=== PATIENT | male | born 1950 | race Caucasian/White ===

== ENCOUNTER 2025-07-09 13:29 | Outpatient (AMB) | payer MEDICARE, SELFPAY ==
--- OUTSIDE RECORDS SUMMARY | 2025-07-09 13:32 | XMS_ITS | Encounter Summary ---
Author Organization [facility] Address [address] [place] [id number] Phone Care Team Providers Care Munitions Worker Name Role Phone Mike Brady MD Primary Care Provider [phone] Mike Brady MD Unavailable [phone] Encounter Details Date Type Department Care Team (Late st Contact Info) Description 05/07/2025 Procedure Pass [facility], [address] [address] Social History Tobacco Use Types Packs/Day Years Used Date Smoking Tobacco: Never Smokeless Tobacco: Never Alcohol Use Standard Drinks/Week Comments Yes 0 (1 standard drink = 0.6 oz pur e alcohol) rarely Education Answer Date Recorded Are you interested in more education? Not on jay e 03/21/2023 Are you concerned about learning? Not on file 03/21/2023 No 03/21/2023 No 03/21/2023 Digital Access Answer Date Recorded No 04/19/2023 No 04/19/2023 Reliable internet access at home? Not on file 04/19/2023 Device with a working camera? Not on file Intimate Partner Violence Answer Date R ecorded Are you denied basic needs s uch as food, clothing, or medical care? No 04/23/2025 In the past 12 months have y ou been in a relationship with a person who hurts, threatens, or tries to control you? No 04/23/2025 Are you denied basic needs s uch as food, clothing, or medical care? No 04/23/2025 In the past 12 months have y ou been in a relationship with a person who hurts, threatens, or tries to control you? No 04/23/2025 Sex and Gender Information Value Date Recorded Sex Assigned at Not on file Legal Sex Male 10:00 PM EDT Gender Identity Not on file Sexual Orientation Not on file Occupation Industry Job Start Date Job End Date Not on file Not on file Not on file Not on file documented as of this encounter Last Filed Vital Signs Vital Sign Reading Time Taken Comments Blood Pressure - - Pulse - - Temperature - - Respiratory Rate - - Oxygen Saturation - - Inhaled Oxygen Concentration - - Weight 110.2 kg (243 lb) 05/10/2025 4:10 PM EDT Height 172.7 cm (5' 8 ) 05/10/2025 4:10 PM EDT Body Mass Index 36.95 05/10/2025 4:10 PM EDT documented in this encounter Plan of Treatment Upcoming Encounters Date Type Department Care Team (Late st Contact Info) Description 10/06/2025 3:00 PM EST Office Visit [facility] [address] [place] [address] [place] [address] Mike Brady MD [address] [place] [id number] [email or web address] documented as of this encounter Visit Diagnoses Not on filedocumented in this encounter Additional Health Concerns Assessment Noted Time PHQ-2 Depression Total Score: 0 04/30/20 24 2:47 PM EDT documented as of this encounter Care Teams Munitions Worker Relationship Specialty Start Date End Date Mike Brady MD [address] [place] [address], [address] [address] PCP - General 09/10/17 Mike Brady MD [address] [place] [address], [address] [address] [email or web address] Historical LMR Provider 09/15/17 documented as of this encounter Additional Source Comments The information contained in this document represents components of the legal health record. It is not the complete legal health record.[facility]
--- NOTE | 2025-07-09 13:56 | A.SPINEOV_ITS ---
Intake Visit Reasons: lower back pain Intake Note: Mr. Santos is here today c/o low back pain. MRI done @ [facility] (brought disc). [employer] Blind [employer]er Required: No Assessment & Plan Assessment & Plan (1) Spondylolisthesis, lumbar region: Code(s): M43.16 - Spondylolisthesis, lumbar region Category: Medical Plan Dear Jose Antonio, Thank you for referring Mr Casper to our office today. He is a 75-year-old gentleman who reports history of issues with his low back and bilateral lower extremity pain which started 6 or 7 months ago. He reports that he has a bad right knee in the pain in his right knee will act up from time to time and when it does it will give him intense pain in his low back which radiates down both legs. The symptoms are aggravated with standing and walking and go away when he sits down. He has good days and bad days but in general the symptoms are progressing and getting worse. He will take Tylenol and Voltaren gel to try to deal with it. He has not done any conservative treatment yet. He had a lumbar MRI showing severe stenosis at L4-5 with a spondylolisthesis. PMH: History of hypertension, BPH, lower extremity edema, high cholesterol, ORIF of the left wrist, right knee surgery. Denies any history of coronary disease, pulmonary issues, liver or kidney disease, cancer, bleeding disorders, blood clots or major abdominal surgery. Social hx: Does not smoke, drink use any recreational drugs Medications: Spironolactone, baby aspirin, folic acid, magnesium, lisinopril, Flomax, Lasix Allergies: Denies Physical exam: Awake alert oriented, no acute distress able to stand up on his own, strength is normal, reflexes diminished at the patella and the Achilles. Imaging review: Lumbar MRI as well as lumbar x-rays done at [facility] reviewed. This shows grade 1 spondylolisthesis at L4-5 with severe central canal stenosis and facet arthropathy. Impression: 75-year-old male presents with progressive increase and worsening of low back pain and bilateral lower extremity pain with standing and walking which goes away when he sits down. It initially started when he would have knee flare-ups but now it is becoming more consistent. At times his legs will shake like he needs to sit down abruptly or is going to fall. He has no focal motor d eficits. His MRI shows severe stenosis at L4-5 with a spondylolisthesis. Typically Dr. Andrade would offer this patient correction of the L4-5 spondylolisthesis with an oblique lumbar interbody fusion. However, he has not been through any dedicated conservative treatment so I feel obligated to at least send him to physical therapy, as we know the insurance company will deny any attempts to submit for surgery unless we at least do this 1st. Therefore, I will send him to PT and re-evaluate in 6 weeks. If he is no better than I think Dr. Andrade will offer him surgery. In the interim I will review all the imaging with Dr. Andrade to confirm the plan. Thank you for allowing us to care for your patient. The total time spent with this visit with this patient was 45 minutes reviewing history, physical exam, lumbar imaging review, and implementation of treatment plan or further diagnostic testing Kt Andrade MD,PhD [facility] Orders: Orders PT Evaluation and Treatment Today M43.16 - Spondylolisthesis, lumbar region Coding Level of Care Code New Pt Level 4 (67212) Diagnoses Spondylolisthesis, lumbar region M43.16
== END 2025-07-09 14:39 | disposition home or self-care (01) ==
LOC: HO.HNS 13:29
PROVIDERS: PCP Pediatrics; Visit Provider Physician Assistant
DX: M43.16 Spondylolisthesis, lumbar region (principal)
CPT/HCPCS: 99204

== ENCOUNTER → 2025-07-09 13:29 | Outpatient (BNVA) | payer MEDICARE, SELFPAY | PROVIDERS: PCP Pediatrics; Visit Provider Physician Assistant | DX: M43.16 Spondylolisthesis, lumbar region (principal) | CPT/HCPCS: 99202 ==